=== PATIENT | male | born 1950 | race Asian ===

== ENCOUNTER 2023-07-04 08:31 | Day surgery (SDC) | payer OTHER, MEDICARE, SELFPAY ==
[2023-07-04] VITALS (16 sets, daily range): BP systolic 103–149; BP diastolic 67–83; BMI 25.1
[2023-07-04 08:59] LABS: Hematocrit 36.6 % (39.0-52.0); Hemoglobin 12.8 g/dL (13.0-18.0); Mean Corpuscular Hgb 29.4 pg (27.0-31.0); Mean Corpuscular Volume 83.9 fL (80.0-94.0); Mean Platelet Volume 11.1 fL (7.4-10.4); Platelet Count 159 10^3/uL (130-400); Red Blood Cell Count 4.36 10^6/uL (4.70-6.10); Red Cell Dist. Width 13.7 % (11.5-14.5); White Blood Cell Count 5.8 10^3/uL (4.8-10.8)
[2023-07-04] MEDS: LOW STRENGTH ASPIRIN 324 MG PO (09:07)
[2023-07-04] MEDS: NSS 206 ML IV (09:16)
[2023-07-04 09:20] LABS: Blood Urea Nitrogen 21 mg/dl (9-20); Calcium 9.6 mg/dl (8.4-10.2); Carbon Dioxide 28 mmol/L (22-30); Chloride 102 mmol/L (98-107); Estimated Creatinine Clearance 60 ml/min; Glucose 132 mg/dl (70-99); Potassium 3.9 mmol/L (3.5-5.1); Sodium 140 mmol/L (135-145); eGFR > 60.00
[2023-07-04 09:27] LABS: Glucose - Point of Care 136 mg/dl (70-99)
--- NOTE | 2023-07-04 09:36 | PTCARENOTE ---
Pt speaks and understands little Danish. Pt's son Enrique at pt bedside interpreting for pt.
[2023-07-04 10:55] LABS: ACT-LR - POC 302 Seconds (116-155)
[2023-07-04] MEDS: NSS 1000 IV (11:23)
[2023-07-04 11:40] LABS: ACT-LR - POC > 397 Seconds (116-155)
--- NOTE | 2023-07-04 12:54 | PTCARENOTE ---
Pt's heart rate upon arrival to recovery room this morning was in the high 50's. Pt's heart rate post procedure has been 40's-50's. Pt resting comfortably in stretcher and sleeping at times. Pt denies any symptoms at this time. Pt's blood pressure
remains stable. Pt's son at pt bedside. [facility] [employer] made aware. No further treatment ordered at this time.
--- NOTE | 2023-07-04 16:19 | ITS.CL.CATH ---
Pesticide Use Medical Coordinator - Catheterization
Cardiac Catheterization
Procedure Report:
RIGHT AND LEFT HEART CATHETERIZATION
Date of Procedure: 07/04/2023
Primary Care Physician:
Primary Sewer Cleaner: Dr. Howard Muñiz
Procedures performed:
1: Coronary angiography
2: Left ventricular hemodynamic assessment
3: Right heart catheterization with full oxygen saturation run
4: Physiologic lesion assessment of the ramus intermedius and circumflex arteries
INDICATION: The patient is a 72-year-old male with complex past medical history including prior anterior ID with LAD stenting in 2010, percutaneous closure of atrial septal defect at [facility] in July 2014, hypertension,
grt-lwyxxms-smyapxppi diabetes, persistent atrial fibrillation in normal sinus rhythm on Eliquis which was held for this procedure. He is referred for coronary angiography in light of new exertional heaviness in his chest that has progressed over
the past few months along with dyspnea on exertion. Echocardiography performed in December 2022 showed an LV ejection fraction of 40 to 45% with prior LAD infarct as well as a severely dilated RV cavity size with mildly decreased RV systolic
function. Since prior echo in 2019 the RV appears more dilated. He underwent an evaluation for pulmonary vascular disease which included a right heart catheterization At [facility] and was told he had no significant pulmonary hypertension. On
review of records he did have a high right atrial oxygen saturation and repeat saturation run was not performed apparently. In light of his new symptoms he is referred for coronary angiography. In light of the increasing RV dilation despite ASD
closure with high right atrial oxygen saturation I will perform a saturation run today.
ACCESS: The patient was prepped and draped in usual sterile fashion. A 6 Luxembourg[place] sheath was placed in the right radial artery using the Seldinger over the wire technique. A 6 [place]bourg[place] sheath was then placed in the right common femoral vein using the
same technique.
HEMODYNAMIC FINDINGS (mmHg):
RA(a,v,m): 15, 16, 10
RV(s/d,EDP): 45/6, 14
PA(s/d/m): 44/16, 25
PCWP(a,v,m): 18, 17, 14
LV(s/d,EDP): 125/12, 20
Ao(s/d,m): 125/59, 86
Oxygen Saturation Run (mg/dl):
SVC SvO2 (%): 56
IVC SvO2 (%): 63
mid RA SvO2 (%): 77
mid RA2 SvO2 (%): 84
mid RA3 SvO2 (%): 80
mean RA SvO2 (%): 80
RV SvO2 (%): 78
PA SvO2 (%): 79
SaO2 (%): 90
MvO2 (%) by FLAMM: 58
Hbg (g/dL): 12.1
Cardiac Output/Index (l/min / l/min/m2) by Estimated Angle Method:
QP: 10.8 / 6.1
QS: 3.9 / 2.2
QP / QS = 2.8 assuming pulmonary venous sat of 90% and no right to left shunt with mean RA less than PCWP
Transpulmonary gradient (mmHg): 11
PVR (Frankel Units): 1.0
VALVE HEMODYNAMICS:
No significant aortic or mitral valve stenosis.
ANGIOGRAPHIC FINDINGS:
Single-plane Left Ventriculography in [place] Projection: Not done
Coronary Angiography:
Dominance: Right
Left Main: Normal
Left Anterior Descending: The LAD is a large-caliber vessel that has a widely patent previously placed stent with no significant in-stent restenosis. The rest of the vessel has only very mild luminal irregularities with normal flow.
Ramus Intermedius: Relatively large ramus intermedius branch that bifurcates into 2 major branches. There is a smooth 50% stenosis just before the bifurcation in the midportion.
Left Circumflex: The left circumflex is a medium caliber vessel that gives rise to a medium caliber distal obtuse marginal branch there is a proximal 60% stenosis which appears slightly more diseased than on prior angiography in 2015.
Right Coronary: The right coronary artery is a medium caliber vessel with high bifurcation that gives rise to a somewhat diminutive posterior descending artery. The acute marginal branch supplies the distal inferoseptum. These vessels are widely
patent with only mild luminal irregularities.
Physiologic lesion assessment:
1: In light of his symptoms I elected to perform physiologic lesion assessment of the circumflex and ramus branches. I did this before performing a right heart cath and realizing that there was a residual shunt. The patient was given
unfractionated heparin. A 6 Luxembourg[place] XB 3.5 guiding catheter was used to engage the left main. A [employer] pressure wire was advanced into the ramus with the transducer positioned beyond the mid lesion in the superior distal branch. The IFR was 0.96
consistent with no flow-limiting disease. The wire was then pulled back to the guide and rezeroed. The transducer was advanced down the true circumflex beyond the proximal lesion and the IFR was measured at 0.98 and 0.99 again consistent with
nonflow limiting disease. The wire was pulled back and final angiography confirmed no changes.
Fluoroscopy Time (min): 11.6
Radiation Dose (mGy): 325
DAP (Gy.cm2): 34
Closure device: None. A TR band was applied for hemostasis at the right wrist. The femoral vein groin sheath will be pulled with manual pressure for hemostasis.
Complications: None.
ASSESSMENT:
1: Nonobstructive coronary artery disease with a widely patent previous LAD stent and negative physiologic lesion assessment in the ramus intermedius and circumflex as described above.
2: Significant left to right shunt with a Qp/Qs of 2.8 in spite of prior ASD closure. This is assuming he does not have a significant right to left shunt based on the fact that his wedge pressure is higher than his mean right atrial pressure. I am
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
3: Mildly elevated pulmonary pressures with normal pulmonary vascular resistance.
CONCLUSIONS and RECOMMENDATIONS:
1: Medical therapy for coronary artery disease.
2: CT angiography to assess for anomalous pulmonary venous return in an effort to explain residual shunting. This would certainly explain the progressive RV dilation after ASD closure. May need repeat bubble study and possibly EMILIANA if etiology of
right atrial saturation step up remains unclear.
3: Close clinical follow-up with Dr. Muñiz.
Piotr Chou M.D.
Copy to: Dr. Matthew Small
== END 2023-07-04 15:05 | disposition home or self-care (01) ==
LOC: CATH 08:31
PROVIDERS: ATTENDING PHYSICIAN Internal Medicine Interventional Cardiology; FAMILY PHYSICIAN Otolaryngology; OTHER PHYSICIAN Internal Medicine Cardiovascular Disease; PRIMARYCARE PHYSICIAN Internal Medicine
DX: I25.10 Atherosclerotic heart disease of native coronary artery without angina pectoris (principal); Z95.5 Presence of coronary angioplasty implant and graft; I25.2 Old myocardial infarction; R06.09 Other forms of dyspnea; I48.19 Other persistent atrial fibrillation; E11.9 Type 2 diabetes mellitus without complications; I10 Essential (primary) hypertension; I27.20 Pulmonary hypertension, unspecified; Z79.01 Long term (current) use of anticoagulants; Z79.84 Long term (current) use of oral hypoglycemic drugs
CPT/HCPCS: C1769 ×2; C1894; C1887; 80048; 82962; 85027; 85347; 93460; 93571; 93572; Q9967